=== PATIENT | female | born 1995 | race Caucasian/White ===

== ENCOUNTER 2018-05-08 07:26 | Outpatient (CLI) | payer OTHER ==
[2018-05-08 08:19] LABS: BHCG - Serum Negative (NEGATIVE); Pregs Control Background? CLEAR/WHITE (CLR/WHITE); Pregs Control Bar Appear? YES (CONTROL BAR)
--- NOTE | 2018-05-08 10:18 | CT ---
CT OF THE ABDOMEN AND PELVIS WITH AND WITHOUT IV CONTRAST: INDICATION: History of frequent urinary tract infections; history of prior bladder surgery as a young child. COMPARISON: None. TECHNIQUE: Multiple CT images were obtained of the abdomen and pelvis with and without Iv contrast. He contrast -enhanced portion of the examination was obtained during the nephrographic phase. No delayed phase i mages were provided. FINDINGS: ABDOMEN: The lung bases are clear. No focal hepatic lesion is evident. The spleen measures 12.6 cm in its greatest axial dimension. Th e pancreas and adrenal glands are normal-appearing. There is irregularity involving the cortex of th e superior pole of the right kidney suspicious for sequelae of other prior trauma or infection. No f rank hydronephrosis is evident. There is a small subcentimeter (6 mm) cyst within the inferior pole of the right kidney. No solid renal lesion is evident. No gross enhancing urothelial lesion is note d. The visualized aspects of the bladder appear within normal limits. No lymphadenopathy is evident . PELVIS: There is mild free fluid seen within the pelvis. There is a peripherally enhancing hypodensity withi n the right adnexa likely reflecting an involuting cyst measuring 1.8 cm. The visualized uterus, rec ruthie, and perirectal soft tissues are unremarkable-appearing. The small bowel is of normal caliber. The appendix is normal in the right lower quadrant. OSSEOUS STRUCTURES: No cute osseous abnormality is evident. IMPRESSION: 1. Some cortical contour irregularity involving the superior pole of the right kidney may reflect se quelae of prior infection. 2. Small subcentimeter cyst within the inferior pole of the right kidney. 3. Mild free fluid in the pelvis may reflect physiologic fluid. There is a 1.8 cm peripherally enha ncing hypodensity within the right adnexa suspicious for an involuting cyst. Recommend correlation w ith phase of administration. POS: [facility]
--- NOTE | 2018-05-08 10:44 | RAD ---
IVP: INDICATION: Recurrent UTIs. COMPARISON: Separately dictated, concurrently performed CT of the abdomen and pelvis with and without contrast rob winslow 05/08/2018. FINDINGS: Drawing Supervisor images demonstrate a normal bowel gas pattern. No suspicious calcification is evident. No acu te osseous abnormality is noted. Subsequent IVP images demonstrate symmetric bilateral nephrograms at the 5-minute time suzy with eve y bilateral excretion that appears symmetric. The segmentally opacified ureters demonstrate no focal filling defect. The visualized opacified bladder appears within normal limits. There is minimal po stvoid residual seen. IMPRESSION: No suspicious abnormality is seen. POS: [facility]
== END 2018-05-08 07:27 | disposition home or self-care (01) ==
LOC: RAD 07:26
PROVIDERS: ATTEND Urology
DX: Z32.00 Encounter for pregnancy test, result unknown (principal); N39.0 Urinary tract infection, site not specified; N28.1 Cyst of kidney, acquired; R93.421 Abnormal radiologic findings on diagnostic imaging of right kidney; R93.41 Abnormal radiologic findings on diagnostic imaging of renal pelvis, ureter, or bladder; Z87.448 Personal history of other diseases of urinary system
CPT/HCPCS: 36415; 74178; 74410; 84703

== ENCOUNTER 2018-07-04 08:01 | Outpatient (CLI) | payer OTHER ==
--- NOTE | 2018-07-04 12:54 | RAD ---
VOIDING CYSTOURETHROGRAM: 07/04/2018 HISTORY: Frequent urinary tract infections. History of vesicoureteral reflux. The patient reports a history of prior surgery secondary to vesicoureteral reflux. FLUOROSCOPY: Total fluoroscopy time is 0.5 minutes with a total dose of 3.715 mGy per cm2. FINDINGS: A voiding cystourethrogram was performed in the usual fashion, after a Foote catheter was placed with in the urinary bladder. Just greater than 200 mL of Omnipaque 300 contrast was instilled into the ur inary bladder. There is no evidence of vesicoureteral reflux on this exam. AP and oblique views wer e obtained. The patient was allowed to void, and there is no evidence of vesicoureteral reflux on po st void images, and no significant post void residual is present. The catheter was removed. IMPRESSION: 1. Normal appearing urinary bladder without contour abnormality or findings to suggest vesicouretera l reflux. 2. No postvoid residual. POS: [facility]
[2018-07-04] MEDS ORDERED: ISOVUE-370 76%-LOCM 1 ML ONE (12:57)
== END 2018-07-04 08:02 | disposition home or self-care (01) ==
LOC: RAD 08:01
PROVIDERS: ATTEND Urology
DX: N39.0 Urinary tract infection, site not specified (principal); Z87.448 Personal history of other diseases of urinary system
CPT/HCPCS: 36415; 51600; 74455; 84703; Q9966